=== PATIENT | male | born 1980 ===

== ENCOUNTER 2018-09-11 04:50 | Emergency (ER) | payer SELFPAY ==
[2018-09-11 05:14] VITALS: BP 147/98
--- NOTE | 2018-09-11 06:10 | ER Document Report ---
ED General - General Chief Complaint: Ear Pain Stated Complaint: EAR PAIN Time Seen by Provider: 09/11/18 06:02 Mode of Arrival: Ambulatory Information source: Parent TRAVEL OUTSIDE OF THE [place] IN LAST 30 DAYS: No - HPI Patient complains to provider of: Right ear pain Onset: This morning Onset/Duration: Sudden Quality of pain: Sharp Severity: Moderate Associated symptoms: denies: Chills, Fever Exacerbated by: Denies Relieved by: Denies Similar symptoms previously: No Recently seen / treated by doctor: No Notes: There is a 8-year-old male patient comes in with acute onset right ear pain this morning. No dizziness or vertigo. No nausea or vomiting. Does not have any drainage from the ear canal. - Related Data Allergies/Adverse Reactions: No Known Drug Allergies Allergy (Verified 09/11/18 05:00) Past Medical History - General Information source: Patient - Social History Smoking Status: Current Every Day Smoker Family History: Reviewed & Not Pertinent Review of Systems - Review of Systems Notes: Constitutional: No fevers. No chills. EENT: No eye redness. No eye pain. Positive right ear pain Cardiovascular: No chest pain. No palpitations. Respiratory: No cough. No shortness of breath. No respiratory distress. Gastrointestinal: No abdominal pain. No nausea, vomiting, or diarrhea. Genitourinary: Atraumatic. No lesions. No pain. No discharge. Musculoskeletal: Atraumatic. No swelling. No deformities. Skin: No rash or lesions. Lymphatic: No swollen lymph nodes. Neurologic: No headache. No syncope. Psychiatric: No suicidal or homicidal ideation. Physical Exam - Vital signs Vitals: Temp Pulse Resp BP Pulse Ox 99.2 F 104 H 16 147/98 H 97 09/11/18 05:11 09/11/18 05:11 09/11/18 05:11 09/11/18 05:11 09/11/18 05:11 - Notes Notes: General: Well-developed, well-nourished. In no acute distress. Non-toxic appearing. Cardiac: Well-perfused. Regular rate and rhythm. No murmurs, rubs, or gallops. Pulmonary: No respiratory distress. No cyanosis. Bilateral lung fiels are clear to auscultation. Abdominal: Non-distended. Non-rigid. Bowels sounds are present in all four quadrants. No guarding or rebound. HEENT: Head is atraumatic. Conjunctivae not reddened. No tearing. PERRL. EOMI. Orbits atraumatic. No periorbital swelling or erythema. Oropharynx is without erythema, swelling, or exudates. Right tympanic membrane is dull and injected 1+ Neck: Supple. No adenopathy. No meningismus. Dermatologic: Warm with good turgor. No rash. Atraumatic. Chest: Atraumatic. No chest wall tenderness to palpation. Musculoskeletal: Moves all extremities well. No range of motion deficits. no muscular or joint tenderness. No paraspinal muscle tenderness. no midline spinal tenderness or step-off. Genitourinary: Examination deferred Neurologic: No gross neurologic deficits. Psychiatric: Normal mood. Course - Vital Signs Vital signs: Temp Pulse Resp BP Pulse Ox 99.2 F 104 H 16 147/98 H 97 09/11/18 05:11 09/11/18 05:11 09/11/18 05:11 09/11/18 05:11 09/11/18 05:11 Discharge - Discharge Clinical Impression: Otitis media Qualifiers: Otitis media type: unspecified nonsuppurative Laterality: right Qualified Code(s): H65.91 - Unspecified nonsuppurative otitis media, right ear Condition: Good Disposition: HOME, SELF-CARE Instructions: Otitis Media ([facility]) Prescriptions: Amoxicillin Trihydrate [Amoxil 875 mg Tablet] 1 tab PO BID #20 tablet Naproxen 500 mg PO BID 5 Days #10 tablet Referrals: [facility] [Provider Group] - Follow up in 3-5 days
== END 2018-09-11 06:19 | disposition home or self-care (01) ==
LOC: ER 04:50
DX: H65.91 Unspecified nonsuppurative otitis media, right ear (principal); H92.01 Otalgia, right ear; F17.200 Nicotine dependence, unspecified, uncomplicated
CPT/HCPCS: 99282